=== PATIENT | female | born 1975 | race Caucasian/White ===

== ENCOUNTER 2018-05-20 00:45 | Emergency (ER) | payer BC ==
[~2018-05-20] VITALS: Ht 162.6 cm; Wt 51.5 kg
[2018-05-20 00:52] VITALS: BP 133/90; Ht 162.6 cm; Wt 51.5 kg
== END 2018-05-20 01:38 | disposition home or self-care (01) ==
LOC: ED 00:45
DX: F41.9 Anxiety disorder, unspecified (principal); F43.0 Acute stress reaction